=== PATIENT | female | born 1990 | race Caucasian/White ===

== ENCOUNTER → 2018-04-17 | Outpatient (CLI) | payer OTHER ==
[~2018-04-17] MED LIST: CITA10TA GT; DOXY100C2 PO; GUAI120S36 PO; MTHL5T PO; TRM50T PO; [UNRECOGNIZED DRUG - CODE] PO
--- NOTE | 2018-04-17 11:42 | Diagnostic Imaging Report ---
PROCEDURE: US Gallbladder. TECHNIQUE: Multiple real-time grayscale images were obtained over the right upper quadrant in various projections. INDICATION: Right upper quadrant pain. The gallbladder appeared normal. The liver and bile ducts normal. No intra- or extrahepatic bile duct dilatation. The unobstructed right kidney was normal in size, cortical thickness and echotexture. There is no ascites or fluid collection. IMPRESSION: Normal right upper quadrant ultrasound. Dictated by: Dictated on workstation # [id number]
== END ==
LOC: RAD 11:12
PROVIDERS: ATTEND Surgery
DX: R10.11 Right upper quadrant pain (principal)
CPT/HCPCS: 76705

== ENCOUNTER → 2018-04-18 | Outpatient (CLI) | payer OTHER ==
[~2018-04-18] MED LIST changes: +CATHETER FLUSH 10 ML SYR IV PRN
--- NOTE | 2018-04-18 15:10 | Diagnostic Imaging Report ---
INDICATION: Right upper quadrant pain. TECHNIQUE: The patient was administered 5.4 mCi of technetium 99m Choletec intravenously and imaging over the abdomen was performed. At 1 hour, the patient ingested 8 ounces of Ensure and the gallbladder ejection fraction was calculated. FINDINGS: There is homogeneous uptake of activity by the liver. Prompt excretion of activity into the gallbladder and common duct is seen. There is normal passage of activity into the small bowel. The gallbladder ejection fraction is low at 19%. IMPRESSION: 1. No evidence of cystic duct or common bile duct obstruction. 2. Low gallbladder ejection fraction of 19%. Dictated by: Dictated on workstation # [id number]
== END ==
LOC: CARD 12:26
PROVIDERS: ATTEND Surgery
DX: R10.11 Right upper quadrant pain (principal); K82.8 Other specified diseases of gallbladder
CPT/HCPCS: 78227

== ENCOUNTER 2018-05-08 10:01 | Day surgery (SDC) | payer OTHER ==
[~2018-05-08] VITALS: Ht 160 cm; Wt 79.4 kg
[~2018-05-08 10:01] MED LIST changes: -CATHETER FLUSH 10 ML SYR IV PRN; +DEXT10TA9 PO
--- NOTE | 2018-05-08 10:10 | Progress Note-Pre Operative ---
Pre-Operative Progress Note H&P Reviewed The H&P was reviewed, patient examined and no changes noted. Date Seen by Provider: Apr 22, 2018 Time Seen by Provider: 16:00 Date H&P Reviewed: May 08, 2018 Time H&P Reviewed: 10:10 Pre-Operative Diagnosis: Dyskinesia of gallbladder JORGE GOODMAN MD May 08, 2018 10:10 am
[2018-05-08] MEDS ORDERED: ceFAZolin 2 GM IV Premixed 50 ML IV ONE (10:15)
[2018-05-08] MEDS ORDERED: metroNIDAZOLE 500MG/100ML IVPB 100 ML IV ONE (10:15)
[2018-05-08 10:20] VITALS: BP 145/89
[2018-05-08] MEDS: LACTATED RINGERS 1,000 ML IV PRN ×2 (10:31→11:54)
[2018-05-08] MEDS ORDERED: ONDANSETRON 4 MG/2 ML (SDV) Z0FRAN ONE (10:37)
[2018-05-08] MEDS ORDERED: LACTATED RINGERS 0 ML IV ONE (10:37)
[2018-05-08] MEDS ORDERED: LIDOCAINE PF 2% 5 ML (XYLOCAINE) VIAL ONE (10:37)
[2018-05-08] MEDS ORDERED: proPOfol 200 MG/20 ML (DIPRIVAN) VIAL IV ONE (10:37)
[2018-05-08] MEDS ORDERED: ROCURONIUM 10 MG/ML 5 ML SYRINGE IV ONE (10:37)
[2018-05-08] MEDS ORDERED: MIDAZOLAM 2 MG/2 ML (VERSED) VIAL ONE ×2 (10:38→10:40)
[2018-05-08] MEDS ORDERED: fentaNYL INJECTION 100 MCG/2 ML AMP ONE ×2 (10:38→12:21)
[2018-05-08] MEDS ORDERED: BUP/EPI 0.5% 1:200,000 (SENSORCAINE) 30 ML VIAL ONE (10:54)
[2018-05-08] MEDS ORDERED: PHENYLEPHRINE 100 MCG/ML 10 ML (ANESTHESIA) SYR ONE (12:08)
--- NOTE | 2018-05-08 12:14 | Operative Report ---
Operative Report Date of Procedure/Surgery May 08, 2018 Surgeon (s) JORGE GOODMAN MD Spectrographer (s): N/A Post-Operative Diagnosis Same Procedure Performed Robotic-assisted cholecystectomy Description of Procedure Anesthesia Type: General Estimated blood loss (mL): Minimal Specimen(s) collected/removed Gallbladder Description of the Procedure Indication for the procedure: This lady presented with typical biliary colic due to chronic, acalculous cholecystitis, combined with reduced ejection fraction on HIDA scan. Therefore, she was offered cholecystectomy using minimally invasive technique with robotic assistance. Informed consent was obtained after reviewing the operative details and complications of wound infection, bile leak the potential for persistent symptoms. Description of the procedure: She was placed supine on the operative table and general anesthesia induced using an endotracheal tube. A gram of Ancef and 500 mg of Flagyl were administered intravenously as prophylaxis against wound infection. Sequential compression devices were placed around her legs, to minimize the risk of venous thrombosis abdomen was prepared and draped in the usual sterile manner. A supraumbilical incision was made and pneumoperitoneum established using a Veress needle. Intra-abdominal pressure was maintained at 10 mmHg, using carbon dioxide insufflation 12 mm trocar was placed and anatomy visualized using the MpayyA physician, 3-dimensional laparoscope, associated with da Jensen system. Under direct view, I placed the 8 mm trocar over each side of the abdomen, followed by a 5 mm trocar over the left upper quadrant. She was then turned into reverse Trendelenburg position, with the right side tilted up. The robotic system was then docked in place. The fundus of the gallbladder was retracted cephalad omentum adherent to the body of the gallbladder taken down using the hook cautery. Peritoneum overlying Calot's triangle was incised using the hook cautery, delineating the cystic duct and artery. The latter was rather fragile and controlled using the cautery itself. Cystic duct was controlled between locking clips. Cholecystectomy was then completed using hook cautery. The gallbladder was then placed in an Endo Catch bag and removed via the supraumbilical trocar site. The fascia over this incision was closed using #1 Vicryl using the Calin Rhoades device, under direct view. Skin incisions were closed using 4-0 Vicryl, in a subcuticular fashion. 0.5 percent Marcaine with epinephrine was infiltrated along the incisions both preemptively and at the conclusion of the operation. She tolerated it well and was extubated in the operating room and taken to the recovery room in a stable condition Findings of the Procedure See op report Allergies and Home Medications Allergies Coded Allergies: No Known Drug Allergies (Unverified , 04/04/11) Home Medications Dextroamphetamine/Amphetamine 10 Mg Tablet, 10 MG PO DAILY, (Reported) Patient Home Medication List Home Medication List Reviewed: Yes JORGE GOODMAN MD May 08, 2018 12:14 pm
[2018-05-08] MEDS ORDERED: ACHD5005 PO (12:15)
[2018-05-08] MEDS ORDERED: SEVOFLURANE (ULTANE) 15 ML INHAL SOLN ONE (12:15)
--- NOTE | 2018-05-08 12:16 | Discharge Inst-Simple/Standard ---
Discharge Inst-Standard Discharge Medications New, Converted or Re-Newed RX: RX on Chart Patient Instructions/Follow Up Plan of Care/Instructions/FU: Band-Aids off in 48 hours. Incentive spirometry. Follow-up in the office when she gets back to work Activity as Tolerated: Yes Discharge Diet: No Restrictions JORGE GOODMAN MD May 08, 2018 12:15 pm
[2018-05-08] MEDS ORDERED: ONDANSETRON 4 MG/2 ML (SDV) Z0FRAN IVP PRN (12:30)
[2018-05-08] MEDS ORDERED: PROMETHAZINE INJ 25 MG/ML (PHENERGAN) AMP IVP PRN (12:30)
[2018-05-08] MEDS ORDERED: MEPERIDINE (DEMEROL) INJ 50 MG/ML IVP PRN (12:30)
[2018-05-08] MEDS: fentaNYL INJECTION 100 MCG/2 ML AMP IVP PRN ×4 (12:32→12:47)
[2018-05-08 13:20] VITALS: BP 124/74
[2018-05-08 13:50] VITALS: BP 117/59
--- NOTE | 2018-05-08 14:13 | Anesthesia-General Post-Op ---
General Patient Condition Mental Status/LOC: Same as Preop Cardiovascular: Satisfactory Nausea/Vomiting: Absent Respiratory: Satisfactory Pain: Controlled Complications: Absent Post Op Complications Complications None Follow Up Care/Instructions Patient Instructions None needed. Anesthesia/Patient Condition Patient Condition Patient is doing well, no complaints, stable vital signs, no apparent adverse anesthesia problems. No complications reported per nursing. [place] [facility] [place]: No TEZ GREEN CRNA May 08, 2018 14:13
[2018-05-08 14:16] LABS: BASOPHILS % (AUTO) 0 % (0-10); EOSINOPHILS % (AUTO) 0 % (0-10); HEMATOCRIT 37 % (35-52); HEMOGLOBIN 12.8 G/DL (11.5-16.0); LYMPHOCYTES # (AUTO) 0.9 X 10^3 (1.0-4.0); LYMPHOCYTES % (AUTO) 5 % (12-44); MEAN CORPUSCULAR HEMOGLOBIN 29 PG (25-34); MEAN CORPUSCULAR HGB CONC 35 G/DL (32-36); MEAN CORPUSCULAR VOLUME 83 FL (80-99); MEAN PLATELET VOLUME 9.9 FL (7.4-10.4); MONOCYTES # (AUTO) 0.2 X 10^3 (0.0-1.0); MONOCYTES % (AUTO) 1 % (0-12); NEUTROPHILS # (AUTO) 15.3 X 10^3 (1.8-7.8); NEUTROPHILS % (AUTO) 94 % (42-75); PLATELET COUNT 299 10^3/uL (130-400); RED BLOOD COUNT 4.47 10^6/uL (4.35-5.85); RED CELL DISTRIBUTION WIDTH 13.5 % (10.0-14.5); WHITE BLOOD COUNT 16.3 10^3/uL (4.3-11.0)
[2018-05-08 14:20] VITALS: BP 108/67
[2018-05-08] MEDS ORDERED: HYDROcodone/APAP 5 MG/325 MG (LORTAB) TAB ONE (14:21)
[2018-05-08] MEDS ORDERED: HYDROcodone/APAP 5 MG/325 MG (LORTAB) TAB PO ONE (14:30)
[2018-05-08 14:50] LABS: ALANINE AMINOTRANSFERASE 20 U/L (0-55); ALBUMIN 3.7 GM/DL (3.2-4.5); ALKALINE PHOSPHATASE 36 U/L (40-136); BILIRUBIN,TOTAL 0.2 MG/DL (0.1-1.0); BUN/CREATININE RATIO 13; CARBON DIOXIDE 21 MMOL/L (21-32); CHLORIDE 110 MMOL/L (98-107); CREATININE SERUM 0.62 MG/DL (0.60-1.30); GFR ESTIMATED > 60; GLUCOSE 133 MG/DL (70-105); POTASSIUM 3.5 MMOL/L (3.6-5.0); SODIUM 139 MMOL/L (135-145); TOTAL PROTEIN 6.3 GM/DL (6.4-8.2)
[2018-05-08 14:51] LABS: BAND NEUTROPHILS 0 %; BASOPHILS % (MANUAL) 0 %; EOSINOPHILS % (MANUAL) 0 %; LYMPHOCYTES % (MANUAL) 8 %; MONOCYTES % (MANUAL) 0 %; NEUTROPHILS % (MANUAL) 92 %; RBC MORPH NORMAL
[2018-05-08 15:03] VITALS: BP 108/67
[2018-05-08 15:21] LABS: CALCIUM 8.3 MG/DL (8.5-10.1)
== END 2018-05-08 15:03 | disposition home or self-care (01) ==
LOC: SDC 10:01
PROVIDERS: ATTEND Surgery
DX: K81.1 Chronic cholecystitis (principal)
CPT/HCPCS: 36415; 80053; 84703; 85007; 85027; 87081; 88304; 94664

== ENCOUNTER → 2019-02-27 | Outpatient (CLI) | payer OTHER ==
[~2019-02-27] MED LIST changes: +ACHD5005 PO
== END ==
LOC: LAB 11:07
PROVIDERS: ATTEND Nurse Practitioner Family
DX: N91.2 Amenorrhea, unspecified (principal)
CPT/HCPCS: 36415; 84702